=== PATIENT | female | born 1975 | race African-American/Black ===

== ENCOUNTER 2024-11-12 14:28 | Inpatient (IN) | payer OTHER ==
--- NOTE | 2024-11-12 15:22 | ED ---
Abdominal Pain HPI - General Chief Complaint: Abdominal Pain Stated Complaint: abd pain Time Seen by Provider: 11/12/24 14:42 Source: patient, RN notes reviewed Mode of arrival: ambulatory Limitations: no limitations - History of Present Illness Initial Comments: This is a 49-year-old female with history of hypertension, GERD and illicit drug use presenting from [facility] for abdominal pain (8/10) x 2 days. Patient states pain is constant and diffuse especially in epigastric and suprapubic regions. Denies known cause for pain with no recent undercooked food intake or known constipation. Also endorses nausea/vomiting with decreased appetite. Also mentions increased urinary frequency without dysuria or hematuria. Patient endorses use of heroin today. States she normally takes metoprolol for blood pressure but has not taken it fairly recently. Denies fever, chills, dizziness, chest pain, dyspnea, constipation, diarrhea, hematemesis, hematochezia, melena. MD Complaint: abdominal pain Onset/Timin -: days(s) Location: diffuse, epigastric, suprapubic Radiation: none Migration to: no migration Severity scale (1-10): 8 Consistency: constant Improves With: nothing Worsens With: nothing Associated Symptoms: nausea, vomiting, anorexia - Related Data Home Medications Medication Instructions Recorded Confirmed No Known Home Medications 11/12/24 11/12/24 Allergies Allergy/AdvReac Type Severity Reaction Status Date / Time ketorolac [From Toradol] Allergy Rash/Hives Verified 11/12/24 17:40 Penicillins AdvReac Unknown Verified 11/12/24 17:40 Review of Systems ROS Statement: Those systems with pertinent positive or pertinent negative responses have been documented in the HPI. ROS Other: All systems not noted in ROS Statement are negative. Past Medical History Past Medical History: Hypertension History of Any Multi-Drug Resistant Organisms: None Reported Past Surgical History: No Surgical Hx Reported Past Psychological History: No Psychological Hx Reported Smoking Status: Current every day smoker Past Alcohol Use History: None Reported Past Drug Use History: Cocaine, Heroin, Marijuana General Exam Limitations: no limitations General appearance: other (Patient contacted entirety of HPI interview face down with head turned towards wall, responding appropriately to verbal) Head exam: Present: atraumatic, normocephalic, normal inspection Eye exam: Present: normal appearance, PERRL, EOMI. Absent: scleral icterus, conjunctival injection, periorbital swelling ENT exam: Present: normal exam, mucous membranes moist Neck exam: Present: normal inspection. Absent: tenderness, meningismus, lymphadenopathy Respiratory exam: Present: normal lung sounds bilaterally. Absent: respiratory distress, wheezes, rales, rhonchi, stridor Cardiovascular Exam: Present: regular rate, normal rhythm, normal heart sounds. Absent: systolic murmur, diastolic murmur, rubs, gallop, clicks GI/Abdominal exam: Present: soft, tenderness (Diffuse tenderness with voluntary guarding, especially in epigastric and suprapubic region. Positive tympanic tenderness as well), diminished bowel sounds. Absent: distended, guarding, rebound, rigid, mass, pulsatile mass, hernia Extremities exam: Present: normal inspection, full ROM, normal capillary refill. Absent: tenderness, pedal edema, joint swelling, calf tenderness Back exam: Present: normal inspection. Absent: CVA tenderness (R), CVA tenderness (L) Neurological exam: Present: alert, oriented X3, CN II-XII intact Psychiatric exam: Present: normal affect, normal mood Skin exam: Present: warm, dry, intact, normal color. Absent: rash Course Vital Signs 11/12/24 11/12/24 11/12/24 14:30 15:24 17:01 Temperature 97.9 F Pulse Rate 98 67 84 Respiratory 22 20 22 Rate Blood Pressure 221/158 258/134 241/143 O2 Sat by Pulse 99 100 100 Oximetry 11/12/24 11/12/24 11/12/24 17:15 18:03 18:20 Temperature Pulse Rate 101 H 100 101 H Respiratory 22 24 24 Rate Blood Pressure 208/152 223/142 213/157 O2 Sat by Pulse 99 100 100 Oximetry 11/12/24 11/12/24 11/12/24 19:05 20:26 22:20 Temperature Pulse Rate 95 113 H 106 H Respiratory 22 16 Rate Blood Pressure 224/148 252/107 240/171 O2 Sat by Pulse 98 Oximetry 11/12/24 11/12/24 11/13/24 23:12 23:32 02:22 Temperature 98.6 F Pulse Rate 105 H 100 116 H Respiratory 16 16 19 Rate Blood Pressure 229/161 207/132 158/127 O2 Sat by Pulse 100 100 Oximetry 11/13/24 11/13/24 11/13/24 06:07 06:59 08:16 Temperature Pulse Rate 128 H 121 H 123 H Respiratory 18 18 18 Rate Blood Pressure 132/108 171/114 101/70 O2 Sat by Pulse 98 99 97 Oximetry 11/13/24 11/13/24 09:20 10:02 Temperature 98.6 F Pulse Rate 112 H 101 H Respiratory 16 16 Rate Blood Pressure 115/94 119/92 O2 Sat by Pulse 98 96 Oximetry Medical Decision Making - Medical Decision Making Was pt. sent in by a medical professional or institution (, PA, WINE PASTEURIZER, urgent care, hospital, or group home...) When possible be specific @ -[facility] Did you speak to anyone other than the patient for history (EMS, parent, family, police, friend...)? What history was obtained from this source @ -No Did you review nursing and triage notes (agree or disagree)? Why? @ -I reviewed and agree with nursing and triage notes Were old charts reviewed (outside hosp., previous admission, EMS record, old EKG, old radiological studies, urgent care reports/EKG's, group home records)? Report findings @ -No old charts were reviewed Differential Diagnosis (chest pain, altered mental status, abdominal pain women, abdominal pain men, vaginal bleeding, weakness, fever, dyspnea, syncope, headache, dizziness, GI bleed, back pain, seizure, CVA, palpatations, mental health, musculoskeletal)? @ -Differential Abdominal Pain Women: Appendicitis, Cholecystitis, diverticulosis, ischemic bowel, pancreatitis, hepatitis, UTI, gastroenteritis, AAA, incarcerated hernia, bowel obstruction, constipation, inflammatory bowel, hepatitis, peptic ulcer disease, splenic infar ction, perforated viscus, vulvitis, ovarian torsion, PID, kidney stone, placenta abruption, this is not meant to be an all-inclusive list EKG interpreted by me (3pts min.). @ -Sinus rhythm with frequent PVCs and no ST changes or T wave inversion. Trickle rate 95 bpm, BOB 155 ms, QRS duration 88 ms, QTc 416 ms. X-rays interpreted by me (1pt min. LVH. No significant ST changes or T wave inversion. Ventricular rate 95 bpm, BOB 155 ms, QRS duration 88 ms, QTc 416 ms. @ -CXR and KUB showed no acute process. CT interpreted by me (1pt min.). @ -CT abdomen/pelvis shows no acute abdominal abnormality. Opacity of right middle lobe indicates pneumonia. U/S interpreted by me (1pt. min.). @ -None done What testing was considered but not performed or refused? (CT, X-rays, U/S, labs)? Why? @ -None What meds were considered but not given or refused? Why? @ -None Did you discuss the management of the patient with other professionals (professionals i.e. Dr., PA, WINE PASTEURIZER, lab, RT, psych nurse, social media director, change attendant, teacher, community cultural development officer, case reviewer)? Give summary @ -Spoke to Dr. Pierre who agreed to patient admission, advising IVF and electrolyte replacement. Was smoking cessation discussed for >3mins.? @ -No Was critical care preformed (if so, how long)? @ -Yes, 35 minutes Were there social determinants of health that impacted care today? How? (Homelessness, low income, unemployed, alcoholism, drug addiction, transportation, low edu. Level, literacy, decrease access to med. care, alf, rehab)? @ -Drug addiction Was there de-escalation of care discussed even if they declined (Discuss DNR or withdrawal of care, Hospice)? DNR status @ -No What co-morbidities impacted this encounter? (DM, HTN, Smoking, COPD, CAD, Cancer, CVA, ARF, Chemo, Hep., AIDS, mental health diagnosis, sleep apnea, morbid obesity)? @ -Hypertension Was patient admitted / discharged? Hospital course, mention meds given and route, prescriptions, significant lab abnormalities, going to OR and other pertinent info. @ -Lab work shows hypokalemia (3.1), hypochloride anemia (91) and elevated anion gap (14). hypercalcemia (11.5) Hyperglycemia (142), elevated alk phos (184), hyperproteinemia (10.2) and elevated amylase (199). Cepheid negative. Persistently highly elevated blood pressure and lactic acidosis (2.4 initially) indicates hypertensive emergency and patient admitted after contact with Dr. Pierre. Patient initially given Pepcid, Zofran, Protonix viscous lidocaine and normal saline for suspected GI etiology. CXR and KUB showed no acute pro cess. CT abdomen/pelvis shows no acute abdominal abnormality. Opacity of right middle lobe indicates pneumonia. Patient provided hydralazine for recalcitrant blood pressure, Dilaudid for pain and potassium chloride for hypokalemia. Additional normal saline provided as well as Ativan and clonidine for suspected withdrawal symptoms. Levofloxacin to be started for right middle lobe pneumonia. Discussed patient with Dr. Márquez. Undiagnosed new problem with uncertain prognosis? @ -No Drug Therapy requiring intensive monitoring for toxicity (Heparin, Nitro, Insulin, Cardizem)? @ -No Were any procedures done? @ -No Diagnosis/symptom? @ -Hypertensive emergency, lactic acidosis, pneumonia Acute, or Chronic, or Acute on Chronic? @ -Acute Uncomplicated (without systemic symptoms) or Complicated (systemic symptoms)? @ -Complicated Side effects of treatment? @ -No Exacerbation, Progression, or Severe Exacerbation? @ -Severe exacerbation Poses a threat to life or bodily function? How? (Chest pain, USA, PA, pneumonia, PE, COPD, DKA, ARF, appy, cholecystitis, CVA, Diverticulitis, Homicidal, Suicidal, threat to staff... and all critical care pts) @ -Hypertensive emergency leading to end organ damage, pneumonia causing respiratory failure - Lab Data Result diagrams: 11/12/24 16:29 11/12/24 16:29 Lab Results 11/12/24 11/12/24 11/12/24 Range/Units 15:40 15:40 15:54 WBC (3.8-10.6) k/uL RBC (3.80-5.40) m/uL Hgb (11.4-16.0) gm/dL Hct (34.0-46.0) % MCV (80.0-100.0) fL MCH (25.0-35.0) pg MCHC (31.0-37.0) g/dL RDW (11.5-15.5) % Plt Count (150-450) k/uL MPV Neutrophils % % Lymphocytes % % Monocytes % % Eosinophils % % Basophils % % Neutrophils # (1.3-7.7) k/uL Lymphocytes # (1.0-4.8) k/uL Monocytes # (0-1.0) k/uL Eosinophils # (0-0.7) k/uL Basophils # (0-0.2) k/uL PT (10.0-12.5) sec INR (<1.2) APTT (22.0-30.0) sec Sodium (137-145) mmol/L Potassium (3.5-5.1) mmol/L Chloride (98-107) mmol/L Carbon Dioxide (22-30) mmol/L Anion Gap mmol/L BUN (7-17) mg/dL Creatinine (0.52-1.04) mg/dL Est GFR (CKD-EPI)AfAm (>60 ml/min/1.73 sqM) Est GFR (CKD-EPI)NonAf (>60 ml/min/1.73 sqM) Glucose (74-99) mg/dL Lactic Ac Sepsis Rflx Plasma Lactic Acid Jos (0.7-2.0) mmol/L Calcium (8.4-10.2) mg/dL Total Bilirubin (0.2-1.3) mg/dL AST (14-36) U/L ALT (4-34) U/L Alkaline Phosphatase (38-126) U/L Troponin I (0.000-0.034) ng/mL Total Protein (6.3-8.2) g/dL Albumin (3.5-5.0) g/dL Amylase (30-110) U/L Lipase (23-300) U/L Urine Color Colorless Urine Appearance Clear (Clear) Urine pH 8.0 (5.0-8.0) Ur Specific [place] 1.006 (1.001-1.035) Urine Protein Trace H (Negative) Urine Glucose (UA) 2+ H (Negative) Urine Ketones Negative (Negative) Urine Blood Trace H (Negative) Urine Nitrite Negative (Negative) Urine Bilirubin Negative (Negative) Urine Urobilinogen <2.0 (<2.0) mg/dL Ur Leukocyte Esterase Trace H (Negative) Urine RBC 9 H (0-5) /hpf Urine WBC 2 (0-5) /hpf Ur Squamous Epith Cells 3 (0-4) /hpf Urine HCG, Qual Not Detected (Not Detectd) Influenza Type A (PCR) Not Detected (Not Detectd) Influenza Type B (PCR) Not Detected (Not Detectd) RSV (PCR) Not Detected (Not Detectd) SARS-CoV-2 (PCR) Not Detected (Not Detectd) 11/12/24 11/12/24 11/12/24 Range/Units 16:29 16:29 16:29 WBC 8.4 (3.8-10.6) k/uL RBC 5.72 H (3.80-5.40) m/uL Hgb 16.4 H (11.4-16.0) gm/dL Hct 49.3 H (34.0-46.0) % MCV 86.2 (80.0-100.0) fL MCH 28.7 (25.0-35.0) pg MCHC 33.3 (31.0-37.0) g/dL RDW 14.3 (11.5-15.5) % Plt Count 337 (150-450) k/uL MPV 7.6 Neutrophils % 72 % Lymphocytes % 21 % Monocytes % 4 % Eosinophils % 1 % Basophils % 0 % Neutrophils # 6.0 (1.3-7.7) k/uL Lymphocytes # 1.8 (1.0-4.8) k/uL Monocytes # 0.3 (0-1.0) k/uL Eosinophils # 0.1 (0-0.7) k/uL Basophils # 0.0 (0-0.2) k/uL PT (10.0-12.5) sec INR (<1.2) APTT (22.0-30.0) sec Sodium 138 (137-145) mmol/L Potassium 3.1 L (3.5-5.1) mmol/L Chloride 91 L (98-107) mmol/L Carbon Dioxide 33 H (22-30) mmol/L Anion Gap 14 mmol/L BUN 13 (7-17) mg/dL Creatinine 0.72 (0.52-1.04) mg/dL Est GFR (CKD-EPI)AfAm >90 (>60 ml/min/1.73 sqM) Est GFR (CKD-EPI)NonAf >90 (>60 ml/min/1.73 sqM) Glucose 142 H (74-99) mg/dL Lactic Ac Sepsis Rflx Plasma Lactic Acid Jos 2.3 H* (0.7-2.0) mmol/L Calcium 11.5 H (8.4-10.2) mg/dL Total Bilirubin 0.7 (0.2-1.3) mg/dL AST 26 (14-36) U/L ALT 19 (4-34) U/L Alkaline Phosphatase 184 H (38-126) U/L Troponin I (0.000-0.034) ng/mL Total Protein 10.2 H (6.3-8.2) g/dL Albumin 5.2 H (3.5-5.0) g/dL Amylase 199 H (30-110) U/L Lipase 179 (23-300) U/L Urine Color Urine Appearance (Clear) Urine pH (5.0-8.0) Ur Specific [place] (1.001-1.035) Urine Protein (Negative) Urine Glucose (UA) (Negative) Urine Ketones (Negative) Urine Blood (Negative) Urine Nitrite (Negative) Urine Bilirubin (Negative) Urine Urobilinogen (<2.0) mg/dL Ur Leukocyte Esterase (Negative) Urine RBC (0-5) /hpf Urine WBC (0-5) /hpf Ur Squamous Epith Cells (0-4) /hpf Urine HCG, Qual (Not Detectd) Influenza Type A (PCR) (Not Detectd) Influenza Type B (PCR) (Not Detectd) RSV (PCR) (Not Detectd) SARS-CoV-2 (PCR) (Not Detectd) 11/12/24 11/12/24 11/12/24 Range/Units 16:29 16:29 17:45 WBC (3.8-10.6) k/uL RBC (3.80-5.40) m/uL Hgb (11.4-16.0) gm/dL Hct (34.0-46.0) % MCV (80.0-100.0) fL MCH (25.0-35.0) pg MCHC (31.0-37.0) g/dL RDW (11.5-15.5) % Plt Count (150-450) k/uL MPV Neutrophils % % Lymphocytes % % Monocytes % % Eosinophils % % Basophils % % Neutrophils # (1.3-7.7) k/uL Lymphocytes # (1.0-4.8) k/uL Monocytes # (0-1.0) k/uL Eosinophils # (0-0.7) k/uL Basophils # (0-0.2) k/uL PT 11.1 (10.0-12.5) sec INR 1.0 (<1.2) APTT 24.8 (22.0-30.0) sec Sodium (137-145) mmol/L Potassium (3.5-5.1) mmol/L Chloride (98-107) mmol/L Carbon Dioxide (22-30) mmol/L Anion Gap mmol/L BUN (7-17) mg/dL Creatinine (0.52-1.04) mg/dL Est GFR (CKD-EPI)AfAm (>60 ml/min/1.73 sqM) Est GFR (CKD-EPI)NonAf (>60 ml/min/1.73 sqM) Glucose (74-99) mg/dL Lactic Ac Sepsis Rflx Y Plasma Lactic Acid Jos (0.7-2.0) mmol/L Calcium (8.4-10.2) mg/dL Total Bilirubin (0.2-1.3) mg/dL AST (14-36) U/L ALT (4-34) U/L Alkaline Phosphatase (38-126) U/L Troponin I <0.012 (0.000-0.034) ng/mL Total Protein (6.3-8.2) g/dL Albumin (3.5-5.0) g/dL Amylase (30-110) U/L Lipase (23-300) U/L Urine Color Urine Appearance (Clear) Urine pH (5.0-8.0) Ur Specific [place] (1.001-1.035) Urine Protein (Negative) Urine Glucose (UA) (Negative) Urine Ketones (Negative) Urine Blood (Negative) Urine Nitrite (Negative) Urine Bilirubin (Negative) Urine Urobilinogen (<2.0) mg/dL Ur Leukocyte Esterase (Negative) Urine RBC (0-5) /hpf Urine WBC (0-5) /hpf Ur Squamous Epith Cells (0-4) /hpf Urine HCG, Qual (Not Detectd) Influenza Type A (PCR) (Not Detectd) Influenza Type B (PCR) (Not Detectd) RSV (PCR) (Not Detectd) SARS-CoV-2 (PCR) (Not Detectd) 11/12/24 Range/Units 20:00 WBC (3.8-10.6) k/uL RBC (3.80-5.40) m/uL Hgb (11.4-16.0) gm/dL Hct (34.0-46.0) % MCV (80.0-100.0) fL MCH (25.0-35.0) pg MCHC (31.0-37.0) g/dL RDW (11.5-15.5) % Plt Count (150-450) k/uL MPV Neutrophils % % Lymphocytes % % Monocytes % % Eosinophils % % Basophils % % Neutrophils # (1.3-7.7) k/uL Lymphocytes # (1.0-4.8) k/uL Monocytes # (0-1.0) k/uL Eosinophils # (0-0.7) k/uL Basophils # (0-0.2) k/uL PT (10.0-12.5) sec INR (<1.2) APTT (22.0-30.0) sec Sodium (137-145) mmol/L Potassium (3.5-5.1) mmol/L Chloride (98-107) mmol/L Carbon Dioxide (22-30) mmol/L Anion Gap mmol/L BUN (7-17) mg/dL Creatinine (0.52-1.04) mg/dL Est GFR (CKD-EPI)AfAm (>60 ml/min/1.73 sqM) Est GFR (CKD-EPI)NonAf (>60 ml/min/1.73 sqM) Glucose (74-99) mg/dL Lactic Ac Sepsis Rflx Plasma Lactic Acid Jos 2.4 H* (0.7-2.0) mmol/L Calcium (8.4-10.2) mg/dL Total Bilirubin (0.2-1.3) mg/dL AST (14-36) U/L ALT (4-34) U/L Alkaline Phosphatase (38-126) U/L Troponin I (0.000-0.034) ng/mL Total Protein (6.3-8.2) g/dL Albumin (3.5-5.0) g/dL Amylase (30-110) U/L Lipase (23-300) U/L Urine Color Urine Appearance (Clear) Urine pH (5.0-8.0) Ur Specific [place] (1.001-1.035) Urine Protein (Negative) Urine Glucose (UA) (Negative) Urine Ketones (Negative) Urine Blood (Negative) Urine Nitrite (Negative) Urine Bilirubin (Negative) Urine Urobilinogen (<2.0) mg/dL Ur Leukocyte Esterase (Negative) Urine RBC (0-5) /hpf Urine WBC (0-5) /hpf Ur Squamous Epith Cells (0-4) /hpf Urine HCG, Qual (Not Detectd) Influenza Type A (PCR) (Not Detectd) Influenza Type B (PCR) (Not Detectd) RSV (PCR) (Not Detectd) SARS-CoV-2 (PCR) (Not Detectd) Disposition Clinical Impression: Hypertensive emergency, Lactic acidosis Disposition: ADMITTED IP TO THIS [facility] Condition: Serious Is patient prescribed a controlled substance at d/c from ED?: No Time of Disposition: 18:21 Decision Date: 11/12/24 Decision Time: 18:21
[2024-11-12 15:58] LABS: Appearance,Urine Clear (Clear); Bilirubin,Urine Negative (Negative); Blood,Urine Trace (Negative); Color,Urine Colorless; Glucose,Urine (UA) 2+ (Negative); Ketones,Urine Negative (Negative); Leukocyte Esterase,Urine Trace (Negative); Nitrite,Urine Negative (Negative); Protein,Urine Trace (Negative); RBC,Urine 9 /hpf (0-5); Specific Gravity,Urine 1.006 (1.001-1.035); Squamous Epithelial Cell,Urine 3 /hpf (0-4); Urobilinogen,Urine <2.0 mg/dL (<2.0); WBC,Urine 2 /hpf (0-5)
[2024-11-12] MEDS: FAMOTIDINE 20 MG/2 ML VIAL IV STA (16:33)
[2024-11-12] MEDS: ONDANSETRON 4 MG/2 ML VIAL IVP STA (16:33)
[2024-11-12] MEDS: PANTOPRAZOLE 40 MG/10 ML VIAL IVP STA (16:34)
[2024-11-12] MEDS: LIDOCAINE VISCOUS 2% 15 ML CUP PO ONE (16:34)
[2024-11-12 16:45] LABS: Basophils % (A) 0 %; Eosinophils # (A) 0.1 k/uL (0-0.7); Eosinophils % (A) 1 %; HCT 49.3 % (34.0-46.0); HGB 16.4 gm/dL (11.4-16.0); Lymphocytes # (A) 1.8 k/uL (1.0-4.8); Lymphocytes % (A) 21 %; MCH 28.7 pg (25.0-35.0); MCHC 33.3 g/dL (31.0-37.0); MCV 86.2 fL (80.0-100.0); Mean Platelet Volume 7.6; Monocytes # (A) 0.3 k/uL (0-1.0); Monocytes % (A) 4 %; Neutrophils % (A) 72 %; Platelet Count 337 k/uL (150-450); RBC 5.72 m/uL (3.80-5.40); RDW 14.3 % (11.5-15.5); WBC 8.4 k/uL (3.8-10.6)
[2024-11-12 16:45] LABS: Influenza A Not Detected (Not Detectd); Influenza B Not Detected (Not Detectd); RSV Not Detected (Not Detectd)
[2024-11-12] MEDS: hydrALAZINE HCL 20 MG/ML 1 ML VIAL IVP STA ×2 (16:52→17:21)
[2024-11-12] MEDS: SODIUM CHLORIDE 0.9% 1,000 ML IV STA ×2 (16:52→21:19)
[2024-11-12 16:55] LABS: Partial Thromboplastin Time 24.8 sec (22.0-30.0); Prothrombin Time 11.1 sec (10.0-12.5)
[2024-11-12 16:58] LABS: ALT 19 U/L (4-34); AST 26 U/L (14-36); African American GFR (CKD) >90 (>60 ml/min/1.73 sqM); Albumin 5.2 g/dL (3.5-5.0); Alkaline Phosphatase 184 U/L (38-126); Amylase 199 U/L (30-110); Anion Gap 14 mmol/L; Blood Urea Nitrogen 13 mg/dL (7-17); Calcium 11.5 mg/dL (8.4-10.2); Carbon Dioxide 33 mmol/L (22-30); Chloride 91 mmol/L (98-107); Glucose 142 mg/dL (74-99); Lipase 179 U/L (23-300); Non-African American GFR(CKD) >90 (>60 ml/min/1.73 sqM); Potassium 3.1 mmol/L (3.5-5.1); Sodium 138 mmol/L (137-145); Total Bilirubin 0.7 mg/dL (0.2-1.3); Total Protein 10.2 g/dL (6.3-8.2)
--- NOTE | 2024-11-12 18:04 | XR ---
EXAMINATION TYPE: XR chest 2V DATE OF EXAM: 11/12/2024 5:38 PM COMPARISON: None CLINICAL INDICATION: Female, 49 years old with history of Epigastric pain; [facility] TECHNIQUE: XR chest 2V Frontal and lateral views of the chest. FINDINGS: Lungs/Pleura: There is no evidence of pleural effusion, focal consolidation, or pneumothorax. Pulmonary vascularity: Unremarkable. Heart/mediastinum: Cardiomediastinal silhouette is unremarkable. Musculoskeletal: No acute osseous pathology. IMPRESSION: No acute cardiopulmonary disease/process. [facility], , 11/12/2024 6:02 PM
--- NOTE | 2024-11-12 18:04 | XR ---
EXAMINATION TYPE: XR KUB DATE OF EXAM: 11/12/2024 5:38 PM COMPARISON: None CLINICAL INDICATION: Female, 49 years old with history of Abdominal pain; [facility] TECHNIQUE: One radiographic view of the abdomen was obtained. FINDINGS: The bowel gas pattern is nonspecific without dilated loops of small or large bowel. . Fecal material and gas are demonstrated throughout the colon and rectum. There is no evidence for organome brie or pneumoperitoneum. No acute osseous process. No abnormal calcifications are present. IMPRESSION: Nonspecific bowel gas pattern without radiographic evidence for acute process. [facility], , 11/12/2024 6:01 PM
[2024-11-12] MEDS: HYDROmorphone 1 MG/ML 1 ML SYRINGE IVP STA (18:05)
[2024-11-12] MEDS: POTASSIUM CHLORIDE ER 20 MEQ TAB.ER PO STA (18:18)
[2024-11-12] MEDS: POTASSIUM CHLORIDE 20 MEQ in WATER FOR INJECTION 1 100ML.BAG IVPB STA (18:18)
[2024-11-12] MEDS: SODIUM CHLORIDE 0.9% 1,000 ML IV SCH (18:36)
[2024-11-12] MEDS: LORazepam 2 MG/ML INJ IV STA (19:07)
--- NOTE | 2024-11-12 19:24 | CT ---
EXAMINATION TYPE: CT abdomen pelvis w con DATE OF EXAM: 11/12/2024 7:07 PM COMPARISON: Noner CLINICAL INDICATION: Female, 49 years old with history of Abdominal pain; [facility] TECHNIQUE: Axial CT abdomen pelvis w con;Sagittal and coronal reformats were created on a separate w orkstation. Contrast used:100ML mL of Isovue 300 with IV Contrast, (none if empty) Oral contrast used: without Oral Contrast (none if empty) CT DLP: 604.9 mGycm, Automated exposure control for dose reduction was used. FINDINGS: LOWER CHEST: Airspace opacities in the middle lobe. ABDOMEN LIVER: Unremarkable GALLBLADDER AND BILE DUCTS: Dilation of the common bile duct up to 8 mm more than expected for patien t's age. PANCREAS: Unremarkable. SPLEEN: Unremarkable. ADRENAL GLANDS: Unremarkable. KIDNEYS AND URETERS: No evidence of hydronephrosis or renal calculus. The ureters are unremarkable. PELVIS BLADDER: No evidence for wall thickening or mass given limitations of exam. REPRODUCTIVE: Right ovarian fat-containing lesion measuring 57 x 41 mm. ABDOMEN & PELVIS STOMACH AND BOWEL: No evidence of bowel obstruction. PERITONEUM/RETROPERITONEUM: No evidence of pneumoperitoneum or free fluid. VASCULATURE: No evidence of aortic aneurysm. MUSCULOSKELETAL: No acute osseous abnormalities LYMPH NODES: No gross evidence for lymphadenopathy. Partially calcified lymph nodes near the sonia he patis. SOFT TISSUE/ABDOMINAL WALL: Unremarkable IMPRESSION: 1. No evidence for acute abdominal process. 2. Airspace opacities in the right middle lobe correlate for aspiration/pneumonia. 3. Dilation of the common bile duct measuring up to 8 mm which is more than expected for patient's a ge. No obstructing calculus visualized. 4. Right ovarian dermoid measuring 57 mm. [facility], , 11/12/2024 7:22 PM
[2024-11-12] MEDS: cloNIDine 0.1 MG/24HR PATCH TRANSDERM SCH (20:21)
[2024-11-12] MEDS: cloNIDine HCL 0.1 MG TAB PO PRN (20:24)
[2024-11-12] MEDS: LORazepam 2 MG/ML INJ IV SCH (21:19)
[2024-11-12] MEDS: ONDANSETRON 4 MG/2 ML VIAL IVP PRN (21:19)
[2024-11-12] MEDS: hydrALAZINE HCL 20 MG/ML 1 ML VIAL IVP PRN (23:13)
[2024-11-13] MEDS: LEVOFLOXACIN 750MG-D5W PMX 750 MG in DEXTROSE/WATER 1 150ML.BAG IVPB SCH (11:00)
[2024-11-13] MEDS: ONDANSETRON ODT 4 MG TAB PO SCH (11:04)
[2024-11-13] MEDS: CALCIUM CARBONATE 500 MG CHEWABLE PO SCH (12:13)
[2024-11-13] MEDS: ENOXAPARIN 40 MG/0.4 ML SYRINGE SQ SCH (12:14)
[2024-11-13] MEDS: NICOTINE 14MG/24HR PATCH TRANSDERM SCH (12:14)
--- NOTE | 2024-11-13 12:45 | P.HPIM ---
History of Present Illness H&P Date: 11/13/24 Chief Complaint: Abdominal pain I am rounding for Dr. Bayron Pierre who is not well This is a 49-year-old patient who came from [place]. Patient is therefore use of multiple drugs including crack cocaine and heroin and marijuana. Patient rather somnolent drowsy. Barely wakes up to see a word to then drowsiness off again. Has history somewhat limited. Patient was sent in for abdominal pain. Some nausea. Review of systems cannot be obtained as patient rather drowsy. Social history: Otherwise lives with her . Smokes half a pack a day. History of heroin, crack cocaine, marijuana, cigarette smoking Physical examination: VITAL SIGNS: 98.6, 112, 16, 115 x 94, 98% room air GENERAL: BMI 23.8, reclining bed lethargic just about arousable then dozes off. EYES: Pupils equal. Conjunctiva josey l. HEENT: External appearance of nose and ears normal, oral cavity grossly normal. Hair well braided. NECK: JVD not raised; masses not palpable. HEART: First and second heart sounds are normal; no edema. LUNGS: Respiratory rate normal; clear to auscultation. ABDOMEN: Soft, nontender, liver spleen not palpable, no masses palpable. PSYCH: Somnolent just about arousable prosthesis l. MUSCULOSKELETAL:No Clubbing/cyanosis;muscles-grossly intact NEUROLOGICAL: Cranial nerves grossly intact; no facial asymmetry, power and sensation grossly intact. LYMPHATICS: No lymph nodes palpable in the axilla and neck INVESTIGATIONS, reviewed in the clinical context: November 12: White count 8.4 hemoglobin 16.4 platelets 337 sodium 138 potassium 3.1 BUN 13 creatinine 0.72 Lactic acid 2.3, 2.4 AST 26 ALT 19 amylase 199 lipase 179 UA negative for nitrite squamous epithelial cells 3 leukoesterase trace Influenza type A, type B, RSV, COVID-19: Not detected EKG tracing personally reviewed by me-normal sinus rhythm. PVC. LVH. Some ST depression. Chest x-ray film personally reviewed by me-unremarkable CT scan abdomen pelvis airspace opacity in the right middle lobe. CBD 8 mm. No calculus. Right ovarian dermoid 57 mm. Assessment plan: -Abdominal pain. Some nausea vomiting. Abdomen is soft on clinical exam. Lipase is normal. Normal white count. Suspect gastritis. Will start the patient on Protonix. Also add Tums. General surgery was consulted. GI service not available in the hospital. Liquid diet -Multiple recreational drugs use including crack cocaine heroin marijuana for which patient is currently at [place]. Watch for withdrawals. Will use Lopressor 12.5 3 times daily to cut back any sympathetic drive. -Abnormal EKG with LVH and ST segment changes. 2D echocardiogram. Consult cardiology. -Right middle lobe infiltrate/pneumonia. Suspect aspiration pneumonia. Possible gram-negative organism. IV Levaquin -Chronic nicotine dependence, cigarette smoker Nicotine patch Past Medical History Past Medical History: Hypertension History of Any Multi-Drug Resistant Organisms: None Reported Past Surgical History: No Surgical Hx Reported Past Psychological History: No Psychological Hx Reported Smoking Status: Current every day smoker Past Alcohol Use History: None Reported Past Drug Use History: Cocaine, Heroin, Marijuana Medications and Allergies Home Medications Medication Instructions Recorded Confirmed Type No Known Home Medications 11/12/24 11/12/24 History Allergies Allergy/AdvReac Type Severity Reaction Status Date / Time ketorolac [From Toradol] Allergy Rash/Hives Verified 11/12/24 17:40 Penicillins AdvReac Unknown Verified 11/12/24 17:40 Physical Exam Vitals: Vital Signs Temp Pulse Resp BP Pulse Ox 11/13/24 10:02 101 H 16 119/92 96 11/13/24 09:20 98.6 F 112 H 16 115/94 98 11/13/24 08:16 123 H 18 101/70 97 11/13/24 06:59 121 H 18 171/114 99 11/13/24 06:07 128 H 18 132/108 98 11/13/24 02:22 98.6 F 116 H 19 158/127 100 11/12/24 23:32 100 16 207/132 100 11/12/24 23:12 105 H 16 229/161 11/12/24 22:20 106 H 16 240/171 11/12/24 20:26 113 H 252/107 11/12/24 19:05 95 22 224/148 98 11/12/24 18:20 101 H 24 213/157 100 11/12/24 18:03 100 24 223/142 100 11/12/24 17:15 101 H 22 208/152 99 11/12/24 17:01 84 22 241/143 100 11/12/24 15:24 67 20 258/134 100 11/12/24 14:30 97.9 F 98 22 221/158 99 Results CBC & Chem 7: 11/12/24 16:29 11/12/24 16:29 Labs: Abnormal Lab Results - Last 24 Hours (Table) 11/12/24 11/12/24 11/12/24 Range/Units 15:40 16:29 16:29 RBC 5.72 H (3.80-5.40) m/uL Hgb 16.4 H (11.4-16.0) gm/dL Hct 49.3 H (34.0-46.0) % Potassium 3.1 L (3.5-5.1) mmol/L Chloride 91 L (98-107) mmol/L Carbon Dioxide 33 H (22-30) mmol/L Glucose 142 H (74-99) mg/dL Plasma Lactic Acid Jos (0.7-2.0) mmol/L Calcium 11.5 H (8.4-10.2) mg/dL Alkaline Phosphatase 184 H (38-126) U/L Total Protein 10.2 H (6.3-8.2) g/dL Albumin 5.2 H (3.5-5.0) g/dL Amylase 199 H (30-110) U/L Urine Protein Trace H (Negative) Urine Glucose (UA) 2+ H (Negative) Urine Blood Trace H (Negative) Ur Leukocyte Esterase Trace H (Negative) Urine RBC 9 H (0-5) /hpf 11/12/24 11/12/24 11/13/24 Range/Units 16:29 20:00 00:17 RBC (3.80-5.40) m/uL Hgb (11.4-16.0) gm/dL Hct (34.0-46.0) % Potassium (3.5-5.1) mmol/L Chloride (98-107) mmol/L Carbon Dioxide (22-30) mmol/L Glucose (74-99) mg/dL Plasma Lactic Acid Jos 2.3 H* 2.4 H* 2.1 H* (0.7-2.0) mmol/L Calcium (8.4-10.2) mg/dL Alkaline Phosphatase (38-126) U/L Total Protein (6.3-8.2) g/dL Albumin (3.5-5.0) g/dL Amylase (30-110) U/L Urine Protein (Negative) Urine Glucose (UA) (Negative) Urine Blood (Negative) Ur Leukocyte Esterase (Negative) Urine RBC (0-5) /hpf
[2024-11-13] MEDS: METOPROLOL TARTRATE 12.5 MG TAB PO SCH (13:07)
--- NOTE | 2024-11-13 15:38 | P.GSCN ---
History of Present Illness Consult date: 11/13/24 History of present illness: CHIEF COMPLAINT: Abdominal pain HISTORY OF PRESENT ILLNESS: This is a 49-year-old female who presented to the hospital from [place] due to abdominal pain for the past 2 days. Patient is a poor historian. She is lethargic. But able to wake up and answer a few questions and then falls asleep. The food tray next to her has been eaten. She reports no nausea or vomiting. She denies any diarrhea. She does have a history of cocaine and heroin abuse. She had a CT scan abdomen and pelvis that reported no acute findings. Patient also had elevated blood pressure prior to coming in. She is mildly tachycardic. PAST MEDICAL HISTORY: Hypertension PAST SURGICAL HISTORY: See below MEDICATIONS: See below ALLERGIES: See below SOCIAL HISTORY: No illicit drug use. REVIEW OF SYSTEMS: CONSTITUTIONAL: Denies fever or chills. HEENT: Denies blurred vision, vision changes, or eye pain. Denies hemoptysis CARDIOVASCULAR: Denies chest pain or pressure. RESPIRATORY: No shortness of breath. GASTROINTESTINAL: See HPI for pertinent findings HEMATOLOGIC: Denies bleeding disorders. GENITOURINARY: Denies any blood in urine or increased urinary frequency. SKIN: Denies pruitis. Denies rash. PHYSICAL EXAM: VITAL SIGNS: Reviewed GENERAL: Well-developed in no acute distress. ABDOMEN: Soft. Nondistended. Nontender. No rebound or guarding NEUROLOGIC: Lethargic LABORATORY DATA: WBC 8.4 Hgb 16.4 platelets 337 Sodium 138 potassium is 3.1 and creatinine 0.72 Lactic acid 2.4 down to 1.3 Total bilirubin 0.7 AST 26 ALT 19 alk phos 184 lipase 179 IMAGING: CT scan abdomen pelvis reports no evidence for acute abdominal process. Airspace opacities in the right middle lobe correlate for aspiration pneumonia. Dilation of the common bile duct measuring up to 8 mm which is more than expected for patient's age. No obstructing calculus visualized. Right ovarian dermoid ASSESSMENT: 1. Abdominal pain 2. Drug abuse with cocaine and heroin. Currently at [place] PLAN: -Patient scheduled for EGD on Sunday with Dr. Foote -Agree with Protonix for possible gastritis -Continue to monitor Physician Linesperson note has been reviewed by physician. Signing provider agrees with the documented findings, assessment, and plan of care. Past Medical History Past Medical History: Hypertension History of Any Multi-Drug Resistant Organisms: None Reported Past Surgical History: No Surgical Hx Reported Past Psychological History: No Psychological Hx Reported Smoking Status: Current every day smoker Past Alcohol Use History: None Reported Past Drug Use History: Cocaine, Heroin, Marijuana Medications and Allergies Home Medications Medication Instructions Recorded Confirmed Type No Known Home Medications 11/12/24 11/12/24 History Allergies Allergy/AdvReac Type Severity Reaction Status Date / Time ketorolac [From Toradol] Allergy Rash/Hives Verified 11/12/24 17:40 Penicillins AdvReac Unknown Verified 11/12/24 17:40 Surgical - Exam Vital Signs Temp Pulse Resp BP Pulse Ox 97.9 F 98 22 221/158 99 11/12/24 14:30 11/12/24 14:30 11/12/24 14:30 11/12/24 14:30 11/12/24 14:30 Results - Labs 11/12/24 16:29 11/12/24 16:29 Abnormal Lab Results - Last 24 Hours (Table) 11/12/24 11/12/24 11/12/24 Range/Units 15:40 16:29 16:29 RBC 5.72 H (3.80-5.40) m/uL Hgb 16.4 H (11.4-16.0) gm/dL Hct 49.3 H (34.0-46.0) % Potassium 3.1 L (3.5-5.1) mmol/L Chloride 91 L (98-107) mmol/L Carbon Dioxide 33 H (22-30) mmol/L Glucose 142 H (74-99) mg/dL Plasma Lactic Acid Jos (0.7-2.0) mmol/L Calcium 11.5 H (8.4-10.2) mg/dL Alkaline Phosphatase 184 H (38-126) U/L Total Protein 10.2 H (6.3-8.2) g/dL Albumin 5.2 H (3.5-5.0) g/dL Amylase 199 H (30-110) U/L Urine Protein Trace H (Negative) Urine Glucose (UA) 2+ H (Negative) Urine Blood Trace H (Negative) Ur Leukocyte Esterase Trace H (Negative) Urine RBC 9 H (0-5) /hpf 11/12/24 11/12/24 11/13/24 Range/Units 16:29 20:00 00:17 RBC (3.80-5.40) m/uL Hgb (11.4-16.0) gm/dL Hct (34.0-46.0) % Potassium (3.5-5.1) mmol/L Chloride (98-107) mmol/L Carbon Dioxide (22-30) mmol/L Glucose (74-99) mg/dL Plasma Lactic Acid Jos 2.3 H* 2.4 H* 2.1 H* (0.7-2.0) mmol/L Calcium (8.4-10.2) mg/dL Alkaline Phosphatase (38-126) U/L Total Protein (6.3-8.2) g/dL Albumin (3.5-5.0) g/dL Amylase (30-110) U/L Urine Protein (Negative) Urine Glucose (UA) (Negative) Urine Blood (Negative) Ur Leukocyte Esterase (Negative) Urine RBC (0-5) /hpf Diabetes panel 11/12/24 Range/Units 16:29 Sodium 138 (137-145) mmol/L Potassium 3.1 L (3.5-5.1) mmol/L Chloride 91 L (98-107) mmol/L Carbon Dioxide 33 H (22-30) mmol/L BUN 13 (7-17) mg/dL Creatinine 0.72 (0.52-1.04) mg/dL Glucose 142 H (74-99) mg/dL Calcium 11.5 H (8.4-10.2) mg/dL AST 26 (14-36) U/L ALT 19 (4-34) U/L Alkaline Phosphatase 184 H (38-126) U/L Total Protein 10.2 H (6.3-8.2) g/dL Albumin 5.2 H (3.5-5.0) g/dL Calcium panel 11/12/24 Range/Units 16:29 Calcium 11.5 H (8.4-10.2) mg/dL Albumin 5.2 H (3.5-5.0) g/dL Pituitary panel 11/12/24 Range/Units 16:29 Sodium 138 (137-145) mmol/L Potassium 3.1 L (3.5-5.1) mmol/L Chloride 91 L (98-107) mmol/L Carbon Dioxide 33 H (22-30) mmol/L BUN 13 (7-17) mg/dL Creatinine 0.72 (0.52-1.04) mg/dL Glucose 142 H (74-99) mg/dL Calcium 11.5 H (8.4-10.2) mg/dL Adrenal panel 11/12/24 Range/Units 16:29 Sodium 138 (137-145) mmol/L Potassium 3.1 L (3.5-5.1) mmol/L Chloride 91 L (98-107) mmol/L Carbon Dioxide 33 H (22-30) mmol/L BUN 13 (7-17) mg/dL Creatinine 0.72 (0.52-1.04) mg/dL Glucose 142 H (74-99) mg/dL Calcium 11.5 H (8.4-10.2) mg/dL Total Bilirubin 0.7 (0.2-1.3) mg/dL AST 26 (14-36) U/L ALT 19 (4-34) U/L Alkaline Phosphatase 184 H (38-126) U/L Total Protein 10.2 H (6.3-8.2) g/dL Albumin 5.2 H (3.5-5.0) g/dL
[2024-11-13] MEDS: PANTOPRAZOLE 40 MG TABLET PO SCH (16:18)
[2024-11-14] MEDS: NALOXONE 0.4 MG/ML 1 ML VIAL IV PRN (07:08)
[2024-11-14 07:11] LABS: Glucose,Whole Blood 154 mg/dL (70-110)
[2024-11-14 08:57] LABS: ALT 14 U/L (4-34); AST 25 U/L (14-36); African American GFR (CKD) 78 (>60 ml/min/1.73 sqM); Albumin/Globulin Ratio 1.1; Alkaline Phosphatase 132 U/L (38-126); Anion Gap 11 mmol/L; Blood Urea Nitrogen 18 mg/dL (7-17); Calcium 10.2 mg/dL (8.4-10.2); Carbon Dioxide 24 mmol/L (22-30); Chloride 99 mmol/L (98-107); Globulin 3.6 g/dL; Glucose 117 mg/dL (74-99); Magnesium 1.4 mg/dL (1.6-2.3); Non-African American GFR(CKD) 67 (>60 ml/min/1.73 sqM); Potassium 4.1 mmol/L (3.5-5.1); Sodium 134 mmol/L (137-145); Total Bilirubin 0.7 mg/dL (0.2-1.3); Total Protein 7.6 g/dL (6.3-8.2)
--- NOTE | 2024-11-14 09:48 | P.CRDCN ---
History of Present Illness History of present illness: HISTORY OF PRESENT ILLNESS: This is a 49-year-old female with a past medical history significant for hypertension, nicotine dependence, and drug abuse including heroin and cocaine. Patient does not follow with a door liner helper. We have been asked to see the patient in consultation for abnormal EKG. Patient examined at the bedside in the emergency room. Patient presented to the hospital from [place] due to abdominal pain. Patient states she has been having abdominal pain for the past 2 to 3 days. She denies having any chest pain or shortness of breath. Patient states she was only at [place] for 1 day before coming to the hospital. She does report a history of cocaine and heroin use. She denies any alcohol use. She is a half a pack per day smoker. She reports a history of hypertension and states that she usually takes metoprolol and hydrochlorothiazide on an outpatient basis. Patient's blood pressures have been labile since coming into the hospital with systolic readings between 89 and 200. DIAGNOSTICS: - EKG reveals sinus mechanism with PVCs. LVH. - Chest xray negative for acute process. - Laboratory data: WBC 8.4. Hemoglobin 16.4. Platelet count 337. Sodium 134. Potassium 4.1. BUN 18. Creatinine 0.99. Magnesium 1.4. Troponin negative x 1. - Current home cardiac medications include metoprolol and hydrochlorothiazide - No previous echocardiogram, stress test, or cardiac catheterization available in EMR for review REVIEW OF SYSTEMS: At the time of my exam: CONSTITUTIONAL: Denies fever or chills. HEENT: Denies blurred vision, vision changes, or eye pain. Denies hemoptysis CARDIOVASCULAR: Denies chest pain. Denies orthopnea. Denies PND. Denies palpitations RESPIRATORY: Denies shortness of breath. GASTROINTESTINAL: Denies abdominal pain. Denies nausea or vomiting. HEMATOLOGIC: Denies bleeding disorders. GENITOURINARY: Denies any blood in urine. SKIN: Denies pruitis. Denies rash. PHYSICAL EXAM: VITAL SIGNS: Reviewed. GENERAL: Well-developed in no acute distress. HEENT: Head is normocephalic. Pupils are equal, round. Sclerae anicteric. Mucous membranes of the mouth are moist. Neck supple. No JVD or thyromegaly LUNGS: Respirations even and unlabored. Lungs essentially clear to auscultation bilaterally. HEART: Regular rate and rhythm. S1 and S2 heard. ABDOMEN: Soft. Nondistended. Nontender. EXTREMITIES: Normal range of motion. No clubbing or cyanosis. Peripheral pulses intact. No lower extremity edema NEUROLOGIC: Awake and alert. Oriented x 3. ASSESSMENT: Abdominal pain History of hypertension Nicotine dependence Drug abuse including heroin and cocaine PLAN: Obtain 2D echo to assess cardiac structure and function Patient's elevated blood pressures may be secondary to acute withdrawal Continue to monitor blood pressure Resume patient's home medication of hydrochlorothiazide Change metoprolol titrate to 25 mg twice a day Further recommendations pending patient course Nurse practitioner note has been reviewed by physician. Signing provider agrees with the documented findings, assessment, and plan of care documented by PHILOSOPHY FACULTY MEMBER as a scribe. Past Medical History Past Medical History: Hypertension History of Any Multi-Drug Resistant Organisms: None Reported Past Surgical History: No Surgical Hx Reported Past Psychological History: No Psychological Hx Reported Smoking Status: Current every day smoker Past Alcohol Use History: None Reported Past Drug Use History: Cocaine, Heroin, Marijuana Medications and Allergies Home Medications Medication Instructions Recorded Confirmed Type No Known Home Medications 11/12/24 11/12/24 History Allergies Allergy/AdvReac Type Severity Reaction Status Date / Time ketorolac [From Toradol] Allergy Rash/Hives Verified 11/12/24 17:40 Penicillins AdvReac Unknown Verified 11/12/24 17:40 Physical Exam Vitals: Vital Signs Temp Pulse Resp BP Pulse Ox 11/14/24 07:34 87 16 139/97 11/14/24 07:20 100 14 99/47 99 11/14/24 07:12 98.7 F 102 H 14 89/68 98 11/14/24 07:08 14 11/14/24 06:58 98.9 F 102 H 30 H 116/76 99 11/14/24 06:41 117 H 18 144/100 100 11/14/24 06:04 97 16 164/97 100 11/14/24 05:44 101 H 22 185/113 100 11/14/24 05:01 88 22 191/114 100 11/14/24 04:31 95 18 217/129 100 11/14/24 04:00 99.1 F 99 16 204/139 100 11/14/24 03:37 90 18 222/144 99 11/14/24 02:00 89 179/129 11/14/24 00:19 102 H 18 120/81 100 11/13/24 23:21 91 18 97/68 99 11/13/24 22:38 94 16 109/77 11/13/24 21:30 76 18 119/94 100 11/13/24 16:19 105 H 22 120/92 98 11/13/24 12:21 117 H 22 94/66 11/13/24 11:02 101 H 22 110/76 98 11/13/24 10:02 101 H 16 119/92 96 11/13/24 09:20 98.6 F 112 H 16 115/94 98 Results 11/12/24 16:29 11/14/24 08:20 Current Medications Generic Name Dose Route Start Last Admin Trade Name Freq PRN Reason Stop Dose Admin Calcium Carbonate/Glycine 1,000 mg 11/13/24 11:45 11/13/24 21:50 Calcium Carbonate 500 Mg Chewable PO 1,000 mg TID VIOLETA Administration Clonidine 0.1 mg 11/12/24 20:15 11/14/24 02:13 Clonidine Hcl 0.1 Mg Tab PO 0.1 mg TID PRN Administration Hypertension Enoxaparin Sodium 40 mg 11/13/24 11:45 11/13/24 12:14 Enoxaparin 40 Mg/0.4 Ml Syringe SQ 40 mg DAILY VIOLETA Administration Hydralazine HCl 10 mg 11/12/24 22:42 11/14/24 03:59 Hydralazine Hcl 20 Mg/Ml 1 Ml Vial IVP 10 mg Q4HR PRN Administration Blood Pressure - High Sodium Chloride 1,000 mls @ 130 mls/hr 11/12/24 18:30 11/14/24 02:10 Saline 0.9% IV 130 mls/hr .[id number] VIOLETA Administration Levofloxacin 750 mg/ IV 150 mls @ 100 mls/hr 11/13/24 10:30 11/13/24 11:00 Solution IVPB 100 mls/hr Q24HR VIOLETA Administration Protocol Lorazepam 2 mg 11/12/24 20:00 11/14/24 02:09 Lorazepam 2 Mg/Ml Inj IV 2 mg Q6H VIOLETA Administration Metoprolol Tartrate 12.5 mg 11/13/24 11:45 11/14/24 00:20 Metoprolol Tartrate 12.5 Mg Tab PO 12.5 mg TID VIOLETA Administration Naloxone HCl 0.2 mg 11/12/24 18:29 11/14/24 07:08 Naloxone 0.4 Mg/Ml 1 Ml Vial IV 0.2 mg Q2M PRN Administration Opioid Reversal Nicotine 1 patch 11/13/24 11:45 11/13/24 12:14 Nicotine 14mg/24hr Patch TRANSDERM 1 patch DAILY VIOLETA Administration Ondansetron HCl 4 mg 11/13/24 10:30 11/14/24 02:13 Ondansetron Odt 4 Mg Tab PO 4 mg Q8H VIOLETA Administration Pantoprazole Sodium 40 mg 11/13/24 17:30 11/13/24 16:18 Pantoprazole 40 Mg Tablet PO 40 mg AC-BID VIOLETA Administration 11/12/24 16:29 11/12/24 16:29
[2024-11-14] MEDS: hydroCHLOROthiazide 25 MG TAB PO SCH (11:42)
[2024-11-14] MEDS: METOPROLOL TARTRATE 25 MG TAB PO SCH (11:42)
[2024-11-14] MEDS: MAGNESIUM OXIDE 400 MG TAB PO SCH (12:53)
--- NOTE | 2024-11-14 13:07 | P.PN ---
Subjective Progress Note Date: 11/14/24 SURGICAL PROGRESS NOTE CHIEF COMPLAINT: Abdominal pain HISTORY OF PRESENT ILLNESS: Patient seen in the ER. She remains lethargic. No new complaints. No nausea or vomiting reported. Patient seen by cardiology and BP meds started. AFebrile. Sodium 134 potassium 4.1 creatinine 0.99 magnesium 1.4 PHYSICAL EXAM: VITAL SIGNS: Reviewed. GENERAL: Well-developed in no acute distress. ABDOMEN: Soft. Nondistended. Nontender. NEUROLOGIC: Lethargic ASSESSMENT: 1. Epigastric abdominal pain 2. Drug abuse with cocaine and heroin. Currently at [place] 3. Hypomagnesemia PLAN: -Patient scheduled for EGD on Sunday with Dr. Foote -Continue protonix -Continue to monitor -Medicine service replacing magnesium Physician Hose Seamer note has been reviewed by physician. Signing provider agrees with the documented findings, assessment, and plan of care. Objective - Vital Signs Vital signs: Vital Signs Temp 98.7 F 11/14/24 07:12 Pulse 106 H 11/14/24 12:45 Resp 18 11/14/24 12:45 BP 111/54 11/14/24 12:45 Pulse Ox 97 11/14/24 12:45 FiO2 - Labs CBC & Chem 7: 11/12/24 16:29 11/14/24 08:20 Labs: Abnormal Lab Results - Last 24 Hours (Table) 11/14/24 11/14/24 Range/Units 07:10 08:20 Sodium 134 L (137-145) mmol/L BUN 18 H (7-17) mg/dL Glucose 117 H (74-99) mg/dL POC Glucose (mg/dL) 154 H (70-110) mg/dL Magnesium 1.4 L (1.6-2.3) mg/dL Alkaline Phosphatase 132 H (38-126) U/L
--- NOTE | 2024-11-14 19:28 | P.PN ---
Progress Note - Text Progress Note Date: 11/14/24 Chief Complaint: Abdominal pain I am rounding for Dr. Bayron Pierre who is not well This is a 49-year-old patient who came from [place]. Patient is therefore use of multiple drugs including crack cocaine and heroin and marijuana. Patient rather somnolent drowsy. Barely wakes up to see a word to then drowsiness off again. Has history somewhat limited. Patient was sent in for abdominal pain. Some nausea. November 14: Far more awake. Keen to eat. Early hydrops of blood pressure. Was getting Ativan 2 mg. Changed to 2.5 every 6 as needed. Slight anxiety. 2D echo ordered by cardiology. Currently no abdominal pain. Active Medications Calcium Carbonate/Glycine (Calcium Carbonate 500 Mg Chewable) 1,000 mg PO TID [facility] Last Admin: 11/14/24 16:03 Dose: Not Given Enoxaparin Sodium (Enoxaparin 40 Mg/0.4 Ml Syringe) 40 mg SQ DAILY [facility] Last Admin: 11/14/24 08:38 Dose: 40 mg Hydrochlorothiazide (Hydrochlorothiazide 25 Mg Tab) 25 mg PO DAILY [facility] Last Admin: 11/14/24 11:42 Dose: Not Given Levofloxacin 750 mg/ IV (Solution) 150 mls @ 100 mls/hr IVPB Q24HR [facility]; Protocol Last Admin: 11/14/24 08:41 Dose: 100 mls/hr Lorazepam (Lorazepam 0.5 Mg Tab) 0.5 mg PO Q6H PRN PRN Reason: Anxiety Magnesium Oxide (Magnesium Oxide 400 Mg Tab) 400 mg PO BID [facility] Last Admin: 11/14/24 12:53 Dose: 400 mg Metoprolol Tartrate (Metoprolol Tartrate 25 Mg Tab) 25 mg PO BID [facility] Last Admin: 11/14/24 11:42 Dose: Not Given Naloxone HCl (Naloxone 0.4 Mg/Ml 1 Ml Vial) 0.2 mg IV Q2M PRN PRN Reason: Opioid Reversal Last Admin: 11/14/24 07:08 Dose: 0.2 mg Nicotine (Nicotine 14mg/24hr Patch) 1 patch TRANSDERM DAILY [facility] Last Admin: 11/14/24 08:38 Dose: 1 patch Ondansetron HCl (Ondansetron Odt 4 Mg Tab) 4 mg PO Q8H [facility] Last Admin: 11/14/24 16:56 Dose: 4 mg Pantoprazole Sodium (Pantoprazole 40 Mg Tablet) 40 mg PO AC-BID VIOLE[facility] Last Admin: 11/14/24 16:56 Dose: 40 mg Social history: Otherwise lives with her . Smokes half a pack a day. History of heroin, crack cocaine, marijuana, cigarette smoking Physical examination: VITAL SIGNS: 98.4, 72, 20, 109 x 54, 96% room air GENERAL: BMI 23.8, reclining in bed awake comfortable EYES: Pupils equal. Conjunctiva josey l. HEENT: External appearance of nose and ears normal, oral cavity grossly normal. Hair well braided. NECK: JVD not raised; masses not palpable. HEART: First and second heart sounds are normal; no edema. LUNGS: Respiratory rate normal; clear to auscultation. ABDOMEN: Soft, nontender, liver spleen not palpable, no masses palpable. PSYCH: AOx3, mood affect slightly anxious l. NEUROLOGICAL: Cranial nerves grossly intact; no facial asymmetry, power and sensation grossly intact. INVESTIGATIONS, reviewed in the clinical context: November 14: Sodium 134 potassium 4.1 creatinine 0.99 magnesium 1.4 November 12: White count 8.4 hemoglobin 16.4 platelets 337 sodium 138 potassium 3.1 BUN 13 creatinine 0.72 Lactic acid 2.3, 2.4 AST 26 ALT 19 amylase 199 lipase 179 UA negative for nitrite squamous epithelial cells 3 leukoesterase trace Influenza type A, type B, RSV, COVID-19: Not detected EKG tracing personally reviewed by me-normal sinus rhythm. PVC. LVH. Some ST depression. Chest x-ray film personally reviewed by me-unremarkable CT scan abdomen pelvis airspace opacity in the right middle lobe. CBD 8 mm. No calculus. Right ovarian dermoid 57 mm. Assessment plan: -Abdominal pain. Some nausea vomiting. Abdomen is soft on clinical exam. Lipase is normal. Normal white count. Suspect gastritis.: Better Placed on Protonix and Tums General surgery was consulted. GI service not available in the hospital. Tolerated liquid diet. Advance to soft diet. t -Multiple recreational drugs use including crack cocaine heroin marijuana for which patient is currently at [place]. Watch for withdrawals. Will use Lopressor 12.5 3 times daily to cut back any sympathetic drive. -Hypertension could be from withdrawal. Follow blood pressure closely. Lopressor increased to 25 twice daily per cardiology. -Anxiety not as responsive to the element of withdrawal. Cut back Ativan to 0.5 mg every 6 as needed -Hypomagnesemia Replace magnesium -Abnormal EKG with LVH and ST segment changes. 2D echocardiogram. Cardiology following -Right middle lobe infiltrate/pneumonia. Suspect aspiration pneumonia. Possible gram-negative organism. IV Levaquin -Chronic nicotine dependence, cigarette smoker Nicotine patch Care was discussed with the patient. Advance diet. Lopressor dose increased. Magnesium oxide added. Past Medical History Past Medical History: Hypertension History of Any Multi-Drug Resistant Organisms: None Reported Past Surgical History: No Surgical Hx Reported Past Psychological History: No Psychological Hx Reported Smoking Status: Current every day smoker Past Alcohol Use History: None Reported Past Drug Use History: Cocaine, Heroin, Marijuana
[2024-11-14] MEDS: LORazepam 0.5 MG TAB PO PRN (20:00)
[2024-11-14 20:06] VITALS: RESP 18; TEMP 98.6
[2024-11-15 07:55] LABS: HCT 37.3 % (34.0-46.0); MCH 28.7 pg (25.0-35.0); Mean Platelet Volume 8.1; Platelet Count 255 k/uL (150-450); RBC 4.29 m/uL (3.80-5.40); RDW 14.7 % (11.5-15.5); WBC 8.6 k/uL (3.8-10.6)
[2024-11-15 07:59] LABS: HGB 12.3 gm/dL (11.4-16.0)
[2024-11-15 08:07] LABS: African American GFR (CKD) 78 (>60 ml/min/1.73 sqM); Anion Gap 7 mmol/L; Blood Urea Nitrogen 22 mg/dL (7-17); Calcium 9.7 mg/dL (8.4-10.2); Carbon Dioxide 26 mmol/L (22-30); Chloride 103 mmol/L (98-107); Glucose 93 mg/dL (74-99); Magnesium 1.6 mg/dL (1.6-2.3); Non-African American GFR(CKD) 68 (>60 ml/min/1.73 sqM); Potassium 4.2 mmol/L (3.5-5.1); Sodium 136 mmol/L (137-145)
[2024-11-15 11:43] VITALS: BP 116/79; PULSE 77
--- NOTE | 2024-11-15 14:12 | P.PN ---
Progress Note - Text Progress Note Date: 11/15/24 Chief Complaint: Abdominal pain I am rounding for Dr. Bayron Pierre who is not well This is a 49-year-old patient who came from [facility]. Patient is therefore use of multiple drugs including crack cocaine and heroin and marijuana. Patient rather somnolent drowsy. Barely wakes up to see a word to then drowsiness off again. Has history somewhat limited. Patient was sent in for abdominal pain. Some nausea. November 14: Far more awake. Keen to eat. Early hydrops of blood pressure. Was getting Ativan 2 mg. Changed to 2.5 every 6 as needed. Slight anxiety. 2D echo ordered by cardiology. Currently no abdominal pain. November 15: Patient doing well. Eating well. No abdominal pain. Discussed with patient. Will be discharged back to [facility]. Questions answered. Patient refused 2D echo. Outpatient EGD by Dr Foote. Social history: Otherwise lives with her . Smokes half a pack a day. History of heroin, crack cocaine, marijuana, cigarette smoking Physical examination: VITAL SIGNS: Afebrile, 77, 18, 116 per 79, 98% room air GENERAL: BMI 23.8, reclining in bed comfortable EYES: Pupils equal. Conjunctiva josey l. HEENT: External appearance of nose and ears normal, oral cavity grossly normal. Hair well braided. NECK: JVD not raised; masses not palpable. HEART: First and second heart sounds are normal; no edema. LUNGS: Respiratory rate normal; clear to auscultation. ABDOMEN: Soft, nontender, liver spleen not palpable, no masses palpable. PSYCH: AOx3, mood affect comfortable NEUROLOGICAL: Cranial nerves grossly intact; no facial asymmetry, power and sensation grossly intact. INVESTIGATIONS, reviewed in the clinical context: November 15: Sodium 136 potassium 4.2 hemoglobin 12.3 magnesium 1.6 November 14: Sodium 134 potassium 4.1 creatinine 0.99 magnesium 1.4 November 12: White count 8.4 hemoglobin 16.4 platelets 337 sodium 138 potassium 3.1 BUN 13 creatinine 0.72 Lactic acid 2.3, 2.4 AST 26 ALT 19 amylase 199 lipase 179 UA negative for nitrite squamous epithelial cells 3 leukoesterase trace Influenza type A, type B, RSV, COVID-19: Not detected EKG tracing personally reviewed by me-normal sinus rhythm. PVC. LVH. Some ST depression. Chest x-ray film personally reviewed by me-unremarkable CT scan abdomen pelvis airspace opacity in the right middle lobe. CBD 8 mm. No calculus. Right ovarian dermoid 57 mm. Assessment plan: -Abdominal pain. Some nausea vomiting. Abdomen is soft on clinical exam. Lipase is normal. Normal white count. Probable t gastritis.: Resolved \ Protonix and Tums Seen with Dr Foote GI service not available in the hospital. Tolerating diet. Outpatient EGD by Dr Foote -Multiple recreational drugs use including crack cocaine heroin marijuana for which patient is currently at [facility]. -Hypertension could be from withdrawal. Follow blood pressure closely. Lopressor increased to 25 twice daily per cardiology. Patient refused 2D echo -Anxiety not as responsive to the element of withdrawal. -Hypomagnesemia Replace magnesium -Abnormal EKG with LVH and ST segment changes. 2D echocardiogram-refused by patient. Cardiology following -Right middle lobe infiltrate/pneumonia. Suspect aspiration pneumonia. Possible gram-negative organism. IV Levaquin. Complete a short course -Chronic nicotine dependence, cigarette smoker Nicotine patch Disposition: [facility] Past Medical History Past Medical History: Hypertension History of Any Multi-Drug Resistant Organisms: None Reported Past Surgical History: No Surgical Hx Reported Past Psychological History: No Psychological Hx Reported Smoking Status: Current every day smoker Past Alcohol Use History: None Reported Past Drug Use History: Cocaine, Heroin, Marijuana
== END 2024-11-15 13:41 | disposition other institution (70) | DRG 178 ==
LOC: EC 14:28 → 3SCARD 20:15 → 5NMEDONC 11-13 15:24 → 3SCARD 11-14 10:47 → OBSVTOIN 11-14 11:30 → 3SCARD 11-14 13:23
PROVIDERS: ADMIT Family Medicine; ATTEND Family Medicine
DX: J15.69 Pneumonia due to other Gram-negative bacteria (principal); E87.20 Acidosis, unspecified; I16.1 Hypertensive emergency; J69.0 Pneumonitis due to inhalation of food and vomit; F11.10 Opioid abuse, uncomplicated; F14.10 Cocaine abuse, uncomplicated; K29.70 Gastritis, unspecified, without bleeding; E83.42 Hypomagnesemia; R73.9 Hyperglycemia, unspecified; E87.6 Hypokalemia; E83.52 Hypercalcemia; I49.3 Ventricular premature depolarization; F41.9 Anxiety disorder, unspecified; K21.9 Gastro-esophageal reflux disease without esophagitis; R35.0 Frequency of micturition; F17.210 Nicotine dependence, cigarettes, uncomplicated; Z79.899 Other long term (current) drug therapy; Z71.6 Tobacco abuse counseling; Z88.6 Allergy status to analgesic agent; Z88.0 Allergy status to penicillin
CPT/HCPCS: 36415; 71046; 74018; 74177; 80048; 80053; 81001; 81025; 82150; 83605; 83690; 83735; 84484; 85025; 85027; 85610; 85730; 87636; 93005; 96361; 96365; 96366; 96372; 96375; 96376; 99291

== ENCOUNTER 2024-11-18 07:32 | Emergency (ER) | payer OTHER ==
--- NOTE | 2024-11-18 07:38 | ED ---
General Adult HPI - General Chief complaint: Abdominal Pain Stated complaint: abd pain Time Seen by Provider: 11/18/24 07:38 Source: patient, EMS, RN notes reviewed Mode of arrival: EMS - History of Present Illness Initial comments: This is a 49-year-old female with a history of hypertension and drug abuse with crack/cocaine/heroin/marijuana presenting to emergency department for [facility] for concerns of epigastric abdominal pain and hypertension. Patient was recently discharged from facility on 11/15/2024 states that she has been having diffuse abdominal pain. Note at [facility] revealed the patient's blood pressure was hypertensive prior to arrival. She denies chest pain, shortness of breath, heart palpitations, dizziness, lightheadedness, urinary bowel habit changes. Denies hematemesis or coffee-ground emesis. - Related Data Home Medications Medication Instructions Recorded Confirmed Acetaminophen Tab [Tylenol] 650 mg PO Q4H PRN 11/18/24 11/18/24 Chlorpheniramine Maleate 4 mg PO Q4H PRN 11/18/24 11/18/24 [Chlor-Trimeton] Hyoscyamine Sulfate [Levsin] 0.125 mg PO QID PRN 11/18/24 11/18/24 Ibuprofen [Motrin Ib] 600 mg PO Q6HR PRN 11/18/24 11/18/24 Loperamide HCl [Imodium A-D] 4 mg PO QID PRN 11/18/24 11/18/24 Mag Hydrox/Aluminum Hyd/Simeth 30 ml PO Q4H PRN 11/18/24 11/18/24 [Mylanta Maximum Strength Liq] Multivitamins, Thera [Multivitamin 1 tab PO DAILY 11/18/24 11/18/24 (formulary)] Thiamine [Vitamin B-1] 100 mg PO DAILY 11/18/24 11/18/24 cloNIDine HCL [Catapres] 0.1 mg PO Q4H PRN 11/18/24 11/18/24 ondansetron HCL [Ondansetron HCl] 8 mg PO Q6H PRN 11/18/24 11/18/24 Previous Rx's Medication Instructions Recorded Calcium Carbonate [Tums] 500 mg PO TID #90 tab 11/15/24 Metoprolol Tartrate [Lopressor] 25 mg PO BID #60 tab 11/15/24 Nicotine 14Mg/24Hr Patch [Habitrol] 1 patch TRANSDERM DAILY #30 patch 11/15/24 Pantoprazole [Protonix] 40 mg PO AC-BID #60 tab 11/15/24 Allergies Allergy/AdvReac Type Severity Reaction Status Date / Time ketorolac [From Toradol] Allergy Rash/Hives Verified 11/18/24 12:34 Penicillins AdvReac Unknown Verified 11/18/24 12:34 Review of Systems ROS Statement: Those systems with pertinent positive or pertinent negative responses have been documented in the HPI. ROS Other: All systems not noted in ROS Statement are negative. Past Medical History Past Medical History: Hypertension Additional Past Medical History / Comment(s): Seizure one time "many years ago," current smoker History of Any Multi-Drug Resistant Organisms: None Reported Past Surgical History: No Surgical Hx Reported Past Anesthesia/Blood Transfusion Reactions: No Reported Reaction Past Psychological History: No Psychological Hx Reported, Anxiety Smoking Status: Current every day smoker Past Alcohol Use History: None Reported Past Drug Use History: Cocaine, Heroin, Marijuana - Past Family History Father History Unknown: Yes Mother History Unknown: Yes General Exam Eye exam: Present: normal appearance, PERRL, EOMI. Absent: scleral icterus, conjunctival injection, periorbital swelling Respiratory exam: Present: normal lung sounds bilaterally. Absent: respiratory distress, wheezes, rales, rhonchi, stridor Cardiovascular Exam: Present: regular rate, normal rhythm, normal heart sounds. Absent: systolic murmur, diastolic murmur, rubs, gallop, clicks GI/Abdominal exam: Present: soft, tenderness, normal bowel sounds. Absent: distended (epigastric), guarding, rebound, rigid Extremities exam: Present: normal inspection, full ROM, normal capillary refill. Absent: tenderness, pedal edema, joint swelling, calf tenderness Back exam: Present: normal inspection Skin exam: Present: warm, dry, intact, normal color. Absent: rash Course Vital Signs 11/18/24 11/18/24 11/18/24 08:02 08:49 09:06 Temperature 98.1 F Pulse Rate 97 84 89 Respiratory 20 19 16 Rate Blood Pressure 167/140 242/149 239/153 O2 Sat by Pulse 99 99 Oximetry 11/18/24 11/18/24 11/18/24 09:33 10:25 11:41 Temperature Pulse Rate 89 87 97 Respiratory 20 16 16 Rate Blood Pressure 216/147 232/148 220/132 O2 Sat by Pulse 99 100 98 Oximetry 11/18/24 11/18/24 11/18/24 11:49 12:01 13:08 Temperature 98.4 F Pulse Rate 103 H 88 93 Respiratory 14 16 16 Rate Blood Pressure 192/146 220/144 199/149 O2 Sat by Pulse 99 97 100 Oximetry Medical Decision Making - Medical Decision Making Was pt. sent in by a medical professional or institution (, PA, [employer], urgent care, hospital, or fci...) When possible be specific @ -[facility] Did you speak to anyone other than the patient for history (EMS, parent, family, police, friend...)? What history was obtained from this source @ -No Did you review nursing and triage notes (agree or disagree)? Why? @ -I reviewed and agree with nursing and triage notes Were old charts reviewed (outside hosp., previous admission, EMS record, old EKG, old radiological studies, urgent care reports/EKG's, fci records)? Report findings @ -Reviewed patient's emergency department visit note from 11/12/2024 where she presented with epigastric abdominal pain did with concern for hypertensive emergency, pneumonia, electrolyte abnormalities and discharged on she was treated for hypomagnesemia, pneumonia, hypertension CT the abdomen pelvis with IV contrast reveal no acute intra-abdominal process, and bile duct dilation up to 8 mm Differential Diagnosis (chest pain, altered mental status, abdominal pain women, abdominal pain men, vaginal bleeding, weakness, fever, dyspnea, syncope, headache, dizziness, GI bleed, back pain, seizure, CVA, palpatations, mental health, musculoskeletal)? @ -Differential Abdominal Pain Women: Appendicitis, Cholecystitis, diverticulosis, ischemic bowel, pancreatitis, hepatitis, UTI, gastroenteritis, AAA, incarcerated hernia, bowel obstruction, constipation, inflammatory bowel, hepatitis, peptic ulcer disease, splenic infarction, perforated viscus, vulvitis, ovarian torsion, PID, kidney stone, placenta abruption, this is not meant to be an all-inclusive list EKG interpreted by me (3pts min.). @ -Completed at 833 sinus rhythm with occasional PVCs, ventricular rate 96, AZ interval 139, QRS 86, QTc 395. X-rays interpreted by me (1pt min.). @ -None done CT interpreted by me (1pt min.). @ -None done U/S interpreted by me (1pt. min.). @ -Ultrasound of the gallbladder revealed hepatomegaly with no evidence of gallstones or biliary ductal dilation. What testing was considered but not performed or refused? (CT, X-rays, U/S, labs)? Why? @ -None What meds were considered but not given or refused? Why? @ -None Did you discuss the management of the patient with other professionals (professionals i.e. DrCassidy, PA, [employer], lab, RT, psych nurse, health care social worker, rn appeals, teacher, animal services officer, block and case maker)? Give summary @ -No Was smoking cessation discussed for >3mins.? @ -No Was critical care preformed (if so, how long)? @ -No Were there social determinants of health that impacted care today? How? (Homelessness, low income, unemployed, alcoholism, drug addiction, trans portation, low edu. Level, literacy, decrease access to med. care, [facility], rehab)? @ -No Was there de-escalation of care discussed even if they declined (Discuss DNR or withdrawal of care, Hospice)? DNR status @ -No What co-morbidities impacted this encounter? (DM, HTN, Smoking, COPD, CAD, Cancer, CVA, ARF, Chemo, Hep., AIDS, mental health diagnosis, sleep apnea, morbid obesity)? @ -None Was patient admitted / discharged? Hospital course, mention meds given and route, prescriptions, significant lab abnormalities, going to OR and other pertinent info. @ -discharged. Discharge. 49-year-old female presenting with epigastric abdominal pain. Patient is noted to be hypertensive on arrival with epigastric abdominal pain. Patient states that pain feels similar as when she is emergency department recently. She is moderately anxious on arrival as well. She is provided with antiemetics, IV fluids, dose of Ativan pending patient and ultrasound imaging. sinus rhythm with occasional PVCs. Ultrasound is unremarkable. Provided with IV dose of Lopressor addition to 2 doses of Catapres for hypertension. Patient has remained asymptomatic hypertension. Labs remarkable for leukocytosis 11.6 and neutrophils 9.4 likely reactive secondary to emesis. She is noted alkalosis with a CO2 of 35 and chloride of 94 in addition to elevated amylase at 276. Urinalysis is unremarkable. No symptoms of chest pain, headaches, heart palpitations, peripheral edema, blurry or double vision. Reevaluation after medication ministration patient states that pain has resolved and states that she is feeling markedly better since arrival to emergency department. Patient has baseline hypertension and is she is asymptomatic and recommends been benign she is stable for discharge back to [facility]. All questions have been answered at bedside answered return parameters have been discussed and she is verbalized understanding. Case discussed with Dr. Jerez Undiagnosed new problem with uncertain prognosis? @ -No Drug Therapy requiring intensive monitoring for toxicity (Heparin, Nitro, Insulin, Cardizem)? @ -No Were any procedures done? @ -No Diagnosis/symptom? @ -Epigastric abdominal pain, hypertension Acute, or Chronic, or Acute on Chronic? @ -Acute Uncomplicated (without systemic symptoms) or Complicated (systemic symptoms)? @ -Uncomplicated Side effects of treatment? @ -No Exacerbation, Progression, or Severe Exacerbation? @ -No Poses a threat to life or bodily function? How? (Chest pain, USA, NM, pneumonia, PE, COPD, DKA, ARF, appy, cholecystitis, CVA, Diverticulitis, Homicidal, Suicidal, threat to staff... and all critical care pts) @ -No - Lab Data Result diagrams: 11/18/24 08:28 11/18/24 08:28 Lab Results 11/18/24 11/18/24 11/18/24 Range/Units 08:04 08:28 08:28 WBC 11.6 H (3.8-10.6) k/uL RBC 5.24 (3.80-5.40) m/uL Hgb 15.0 (11.4-16.0) gm/dL Hct 45.4 (34.0-46.0) % MCV 86.7 (80.0-100.0) fL MCH 28.7 (25.0-35.0) pg MCHC 33.1 (31.0-37.0) g/dL RDW 14.5 (11.5-15.5) % Plt Count 412 (150-450) k/uL MPV 7.1 Neutrophils % 81 % Lymphocytes % 14 % Monocytes % 3 % Eosinophils % 1 % Basophils % 0 % Neutrophils # 9.4 H (1.3-7.7) k/uL Lymphocytes # 1.6 (1.0-4.8) k/uL Monocytes # 0.4 (0-1.0) k/uL Eosinophils # 0.1 (0-0.7) k/uL Basophils # 0.0 (0-0.2) k/uL Sodium 140 (137-145) mmol/L Potassium 4.1 (3.5-5.1) mmol/L Chloride 94 L (98-107) mmol/L Carbon Dioxide 35 H (22-30) mmol/L Anion Gap 11 mmol/L BUN 12 (7-17) mg/dL Creatinine 0.74 (0.52-1.04) mg/dL Est GFR (CKD-EPI)AfAm >90 (>60 ml/min/1.73 sqM) Est GFR (CKD-EPI)NonAf >90 (>60 ml/min/1.73 sqM) Glucose 141 H (74-99) mg/dL Calcium 10.8 H (8.4-10.2) mg/dL Magnesium 1.7 (1.6-2.3) mg/dL Total Bilirubin 0.5 (0.2-1.3) mg/dL AST 36 (14-36) U/L ALT 32 (4-34) U/L Alkaline Phosphatase 144 H (38-126) U/L Total Protein 9.5 H (6.3-8.2) g/dL Albumin 4.9 (3.5-5.0) g/dL Amylase 276 H (30-110) U/L Lipase 191 (23-300) U/L Urine Color Colorless Urine Appearance Clear (Clear) Urine pH 8.0 (5.0-8.0) Ur Specific [place] 1.006 (1.001-1.035) Urine Protein Negative (Negative) Urine Glucose (UA) 1+ H (Negative) Urine Ketones Negative (Negative) Urine Blood Negative (Negative) Urine Nitrite Negative (Negative) Urine Bilirubin Negative (Negative) Urine Urobilinogen <2.0 (<2.0) mg/dL Ur Leukocyte Esterase Negative (Negative) Disposition Clinical Impression: Hypertension Disposition: HOME SELF-CARE Condition: Good Instructions (If sedation given, give patient instructions): Chronic Hypertension (DC) Additional Instructions: Please return to the Emergency Department if symptoms worsen or any other concerns. Is patient prescribed a controlled substance at d/c from ED?: No Referrals: Nonstaff,Physician [Primary Care Provider] - 1-2 days Time of Disposition: 12:35
[2024-11-18 08:26] LABS: Appearance,Urine Clear (Clear); Bilirubin,Urine Negative (Negative); Blood,Urine Negative (Negative); Color,Urine Colorless; Glucose,Urine (UA) 1+ (Negative); Ketones,Urine Negative (Negative); Leukocyte Esterase,Urine Negative (Negative); Nitrite,Urine Negative (Negative); Protein,Urine Negative (Negative); Specific Gravity,Urine 1.006 (1.001-1.035); Urobilinogen,Urine <2.0 mg/dL (<2.0)
[2024-11-18 08:37] LABS: Basophils % (A) 0 %; Eosinophils # (A) 0.1 k/uL (0-0.7); Eosinophils % (A) 1 %; HCT 45.4 % (34.0-46.0); Lymphocytes # (A) 1.6 k/uL (1.0-4.8); Lymphocytes % (A) 14 %; MCH 28.7 pg (25.0-35.0); MCHC 33.1 g/dL (31.0-37.0); MCV 86.7 fL (80.0-100.0); Mean Platelet Volume 7.1; Monocytes # (A) 0.4 k/uL (0-1.0); Monocytes % (A) 3 %; Neutrophils # (A) 9.4 k/uL (1.3-7.7); Neutrophils % (A) 81 %; Platelet Count 412 k/uL (150-450); RBC 5.24 m/uL (3.80-5.40); RDW 14.5 % (11.5-15.5); WBC 11.6 k/uL (3.8-10.6)
[2024-11-18] MEDS: LORazepam 2 MG/ML INJ IV STA (08:43)
[2024-11-18] MEDS: ONDANSETRON 4 MG/2 ML VIAL IVP STA (08:44)
[2024-11-18] MEDS: SODIUM CHLORIDE 0.9% 1,000 ML IV STA (08:44)
[2024-11-18 08:47] LABS: ALT 32 U/L (4-34); AST 36 U/L (14-36); African American GFR (CKD) >90 (>60 ml/min/1.73 sqM); Albumin 4.9 g/dL (3.5-5.0); Alkaline Phosphatase 144 U/L (38-126); Amylase 276 U/L (30-110); Anion Gap 11 mmol/L; Blood Urea Nitrogen 12 mg/dL (7-17); Calcium 10.8 mg/dL (8.4-10.2); Carbon Dioxide 35 mmol/L (22-30); Chloride 94 mmol/L (98-107); Glucose 141 mg/dL (74-99); Lipase 191 U/L (23-300); Magnesium 1.7 mg/dL (1.6-2.3); Non-African American GFR(CKD) >90 (>60 ml/min/1.73 sqM); Potassium 4.1 mmol/L (3.5-5.1); Sodium 140 mmol/L (137-145); Total Bilirubin 0.5 mg/dL (0.2-1.3); Total Protein 9.5 g/dL (6.3-8.2)
[2024-11-18] MEDS: METOPROLOL TARTRATE 5 MG/5 ML VIAL IVP STA (09:02)
--- NOTE | 2024-11-18 09:33 | US ---
EXAMINATION TYPE: US gallbladder DATE OF EXAM: 11/18/2024 COMPARISON: CT 2014 CLINICAL INDICATION: Female, 49 years old with history of high amylase, pain, dilated bile duct CT; TECHNIQUE: Grayscale and color Doppler imaging of the right upper quadrant was performed. FINDINGS: EXAM MEASUREMENTS: Liver Length: 17.8 cm Gallbladder Wall: 0.2 cm CBD: 0.5 cm Right Kidney: 10.8 x 4.7 x 6.2 cm Pancreas: visualized portions wnl, tail limited by overlying bowel gas Liver: wnl Gallbladder: wnl Evidence for sonographic Quispe's sign: no CBD: wnl Right Kidney: fullness of renal pelvis IMPRESSION: 1. Hepatomegaly correlate for underlying hepatocellular disease or hepatic steatosis. 2. No evidence of gallstones or biliary ductal dilation. [facility], , 11/18/2024 9:30 AM
[2024-11-18] MEDS: cloNIDine HCL 0.2 MG TAB PO STA ×2 (10:25→11:59)
[2024-11-18 12:02] VITALS: RESP 16
[2024-11-18 13:12] VITALS: BP 199/149; PULSE 93; TEMP 98.4
== END 2024-11-18 13:12 | disposition home or self-care (01) ==
LOC: EC 07:32
DX: I10 Essential (primary) hypertension (principal); F14.10 Cocaine abuse, uncomplicated; F17.200 Nicotine dependence, unspecified, uncomplicated; Z88.0 Allergy status to penicillin; Z88.5 Allergy status to narcotic agent
CPT/HCPCS: 36415; 76705; 80053; 81003; 82150; 83690; 83735; 85025; 93005; 96361; 96374; 96375; 99285